=== PATIENT | male | born 2000 | race Caucasian/White ===

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

== ENCOUNTER 2022-03-22 19:17 | Emergency (ER) | payer OTHER, MEDICAID ==
[~2022-03-22] VITALS: Ht 182.9 cm; Wt 109.1 kg
[~2022-03-22 19:17] MED LIST: NORCO 325 MG-51 TAB PO
[2022-03-22 19:43] VITALS: BP 119/77; TEMP 98.7
[2022-03-22 20:00] VITALS: PULSE 87
== END 2022-03-22 20:22 | disposition home or self-care (01) ==
LOC: COL.ER 19:17
DX: S09.90XA Unspecified injury of head, initial encounter (principal); R04.0 Epistaxis; Z28.310 Unvaccinated for COVID-19; W22.8XXA Striking against or struck by other objects, initial encounter

== ENCOUNTER 2023-10-09 13:40 | Emergency (ER) | payer OTHER ==
[~2023-10-09] VITALS: Ht 182.9 cm; Wt 113.6 kg
[~2023-10-09 13:40] MED LIST changes: +AMOXICILLIN 50500 MG PO; +BIAXIN 500MG T500 MG PO; +CARAFATE S1 GM/10 ML PO; +FERRO-TIME325 MG PO; +PROTONIX 40MG T40 MG PO; +VITAMINC500CH PO
[2023-10-09 13:53] VITALS: TEMP 98.2
[2023-10-09 15:43] VITALS: BP 133/95; PULSE 102
== END 2023-10-09 15:46 | disposition home or self-care (01) ==
LOC: COL.ER 13:40
DX: J10.1 Influenza due to other identified influenza virus with other respiratory manifestations (principal); R04.0 Epistaxis